=== PATIENT | male | born 1975 | race Caucasian/White ===

== ENCOUNTER 2016-06-20 07:16 | Day surgery (SDC) | payer OTHER, BC ==
--- NOTE | 2016-06-20 09:38 | PCM.PN ---
- General Info Date of Service: 06/20/16 - Review of Systems Systems Review Comment:: 41 y/o male here for Right Inguinal Hernia Repair. The site is confirmed with the patient and marked. I have again reviewed the proposed procedure with the patient. Expectations and instructions reviewed. Questions answered. He agrees to proceed accepting risks. - Patient Data Vitals - most recent: Last Vital Signs Temp 97.9 F 06/20/16 07:55 Pulse 55 L 06/20/16 07:55 Resp 18 06/20/16 07:55 BP 119/78 06/20/16 07:55 Pulse Ox 95 06/20/16 07:55 Weight - most recent: 200 lb Med Orders - Current: Current Medications Lactated Ringer's (Ringers, Lactated) 1,000 mls @ 125 mls/hr IV ASDIRECTED JUVENTINO Last Admin: 06/20/16 08:10 Dose: 125 mls/hr Cefazolin Sodium 2 gm/ Sodium (Chloride) 100 mls @ 200 mls/hr IV ONETIME ONE Stop: 06/20/16 11:29 - Problem List Review Problem List Initiated/Reviewed/Updated: Yes - My Orders Last 24 Hours: My Active Orders 06/19/16 10:17 Resuscitation Status Routine 06/20/16 09:45 Patient Status [ADT] Routine Patient to Empty Bladder [RC] ASDIRECTED Verify Patient Consent Obtain [RC] ASDIRECTED Lactated Ringers [Ringers, Lactated] 1,000 ml IV ASDIRECTED Peripheral IV Insertion Adult [OM.PC] Routine Sequential Compression Device [OM.PC] Routine 06/20/16 11:00 ceFAZolin [Ancef] 2 gm Sodium Chloride 0.9% [Normal Saline] 100 ml IV ONETIME 06/20/16 Breakfast Nothing Per Oral Diet [DIET] - Assessment Assessment:: Right Inguinal Hernia - Plan Plan:: Right Inguinal Hernia Repair
[2016-06-20] MEDS ORDERED: Midazolam 1 MG/ML 2 ML SDV IV ONE (09:45)
[2016-06-20] MEDS ORDERED: Lactated Ringers 1,000 ML IV SCH (09:45)
[2016-06-20] MEDS ORDERED: Dexamethasone 4 MG/ML 5 ML MDV IVPUSH ONE (09:45)
[2016-06-20] MEDS ORDERED: Rocuronium 100 MG/10 ML MDV IV ONE (09:45)
[2016-06-20] MEDS ORDERED: Lactated Ringers 1,000 ML IV ONE (09:45)
[2016-06-20] MEDS ORDERED: Ketorolac 30 MG/ML SDV IVPUSH ONE (09:45)
[2016-06-20] MEDS ORDERED: Ondansetron 4 MG/2 ML SDV IVPUSH ONE (09:45)
[2016-06-20] MEDS ORDERED: Neostigmine Methylsulfate 1 MG/ML 5 ML Syringe IV ONE (09:45)
[2016-06-20] MEDS ORDERED: Glycopyrrolate 0.2 MG/ML 2 ML SDV IV ONE (09:45)
[2016-06-20] MEDS ORDERED: fentaNYL 100 MCG/2 ML SDV IV ONE (09:45)
[2016-06-20] MEDS ORDERED: diphenhydrAMINE 50 MG/ML SDV IV ONE (09:45)
[2016-06-20] MEDS ORDERED: Succinylcholine 200 MG/10 ML MDV IV ONE (09:45)
[2016-06-20] MEDS ORDERED: Propofol 200 MG/20 ML SDV IV ONE (09:45)
[2016-06-20] MEDS ORDERED: ceFAZolin 1 GM Vial ONE (10:15)
[2016-06-20] MEDS ORDERED: ceFAZolin 2 GM in Sodium Chloride 0.9% 100 ML IV ONE (11:00)
--- NOTE | 2016-06-20 11:48 | PCM.OPNOTE ---
- General Post-Op/Procedure Note Date of Surgery/Procedure: 06/20/16 Operative Procedure(s): Repair Right Inguinal Hernia with Mesh Findings: Moderately large Indirect Right Inguinal Hernia with mild weakness of the floor of the inguinal canal Pre Op Diagnosis: Right Inguinal Hernia Post-Op Diagnosis: Same Anesthesia Technique: General ET tube Primary Surgeon: Misbah Chang Pathology: Indirect Right Inguinal Hernia Sac Output, Urine Amount: 0 EBL in mLs: 20 Complications: None Condition: Good
[2016-06-20] MEDS: Morphine 2 MG/ML Syringe IVPUSH PRN ×2 (12:06→12:19)
[2016-06-20] MEDS ORDERED: Acetaminophen/HYDROcodone 325-5 MG Tab PO ONE (12:41)
--- NOTE | 2016-06-20 13:05 | OR ---
DATE OF OPERATION: 06/20/2016 SURGEON: Misbah Chang MD PREOPERATIVE DIAGNOSIS: Right inguinal hernia. POSTOPERATIVE DIAGNOSIS: Indirect right inguinal hernia. OPERATION PERFORMED: Right inguinal hernia repair with mesh. INDICATIONS FOR SURGERY: This 41-year-old male has developed a bulge in the right groin. Physical findings are consistent with a right inguinal hernia, and he comes for elective repair. FINDINGS: The patient has a moderate sized indirect inguinal hernia on the right side. The hernia sac is scarred to the cord structures, but upon opening it, was found to be empty. The floor of the inguinal canal demonstrates mild generalized weakness. Cord structures otherwise appeared satisfactory. PROCEDURE IN DETAIL: The patient was taken to the operating room. He was given general endotracheal anesthesia, and the right groin was sterilely prepped and draped. A linear right groin incision was made, carried down to the external oblique fascia, which was incised opening the external ring. The spermatic cord was isolated. The ilioinguinal nerve was identified and carefully preserved. The spermatic cord was explored and an indirect sac was identified and carefully from the cord structures using blunt and cautery dissection. The sac was freed down to the level of the internal ring and it is opened and found to be empty. It was then rotated upon its access and suture-ligated with 2-0 Vicryl at the level of the internal ring. A reinforcing tie of 2-0 Vicryl was placed at this location. The sac was then amputated above these ties. Repair of the floor of the inguinal canal was then carried out by securing a large sized keyhole shaped piece of polypropylene mesh and positioned over the Hesselbach's triangle. The inferior edge of the mesh was secured to the Larry's ligament medial to the femoral vessels, and the shelving portion of the inguinal ligament anterior to these vessels with interrupted 0 Prolene sutures. The superior edge of the mesh was secured to the internal oblique fascia near its fusion with the external oblique fascia also with interrupted 0 Prolene. The spermatic cord and the ilioinguinal nerve were passed in through the keyhole defect. Then, the tails of the mesh were secured laterally with 0 Prolene recreating the internal ring such that it would admit one fingertip alongside the spermatic cord. The tails of the mesh were trimmed and then laid into the space lateral to the internal ring between the internal and external oblique fascias. Inspection showed no sign of any complicating process. The wound was irrigated with Ancef and saline solution. The external oblique fascia was reapproximated with a running 2-0 Vicryl recreating the external ring. The wound was infiltrated with Marcaine. Cheyanne's fascia was approximated with interrupted 4-0 Vicryl, and the skin was closed with a running 4-0 Vicryl subcuticular stitch, Steri-Strips, and Benzoin. Antibiotic ointment and sterile dressing were placed. The patient was then awakened, extubated, and taken from the operating room in satisfactory condition. ESTIMATED BLOOD LOSS: 20 mL. COMPLICATIONS: None. PROGNOSIS: Good. /[id number] XANDER/USMAN
[2016-06-20 14:46] VITALS: BP 122/76
== END 2016-06-20 14:35 | disposition home or self-care (01) ==
LOC: FB.SDS 07:16
PROVIDERS: ATTEND Surgery
DX: K40.90 Unilateral inguinal hernia, without obstruction or gangrene, not specified as recurrent (principal); Z79.899 Other long term (current) drug therapy; Z88.6 Allergy status to analgesic agent
CPT/HCPCS: 49505; A9270; J0330; J0690; J1100; J1200; J1885; J2250; J2270; J2405; J2704; J3010; J7030; J7120; 88300; C1781; J3490

== ENCOUNTER 2017-12-19 16:10 | Day surgery (SDC) | payer BC ==
[2017-12-19] MEDS ORDERED: Sodium Chloride 0.9% 10 ML Syringe FLUSH PRN (16:18)
[2017-12-19] MEDS ORDERED: Propofol 200 MG/20 ML SDV IV ONE (17:07)
[2017-12-19] MEDS ORDERED: Lactated Ringers 1,000 ML IV ONE (17:07)
[2017-12-19] MEDS ORDERED: Ketamine 500 mg/10 ML MDV IV ONE (17:07)
[2017-12-19] MEDS ORDERED: Lidocaine 2% 100 MG/5 ML Syringe IVPUSH ONE (17:07)
[2017-12-19] MEDS ORDERED: Midazolam 1 MG/ML 2 ML SDV IV ONE (17:07)
[2017-12-19] MEDS ORDERED: cefOXitin 1 GM Vial IV ONE (17:07)
[2017-12-19] MEDS ORDERED: fentaNYL 100 MCG/2 ML SDV IV ONE (17:07)
[2017-12-19] MEDS: Lactated Ringers 1,000 ML IV SCH (17:11)
--- NOTE | 2017-12-19 17:11 | PCM.PN ---
- General Info Date of Service: 12/19/17 Admission Dx/Problem (Free Text): Patient with severe rectal pain for 4 days. Exam shows findings consistent with aguilar-rectal abscess. - Patient Data Vitals - Most Recent: Last Vital Signs Temp 98.1 F 12/19/17 16:17 Pulse 83 12/19/17 16:17 Resp 20 12/19/17 16:17 BP 128/72 12/19/17 16:17 Pulse Ox 95 12/19/17 16:17 Weight - Most Recent: 195 lb 8 oz Med Orders - Current: Current Medications Lactated Ringer's (Ringers, Lactated) 1,000 mls @ 125 mls/hr IV ASDIRECTED JUVENTINO Sodium Chloride (Saline Flush) 10 ml FLUSH ASDIRECTED PRN PRN Reason: Keep Vein Open - Exam General: Alert, Oriented Lungs: Clear to Auscultation Cardiovascular: Regular Rate, Regular Rhythm Extremities: Normal Inspection, No Pedal Edema Physical Findings Comments:: Induration and marked tenderness on left posterior aspect of rectum. - Problem List Review Problem List Initiated/Reviewed/Updated: Yes - My Orders Last 24 Hours: My Active Orders 12/19/17 16:18 Patient Status [ADT] Routine Patient to Empty Bladder [RC] ASDIRECTED Verify Patient Consent Obtain [RC] ASDIRECTED Sodium Chloride 0.9% [Saline Flush] 10 ml FLUSH ASDIRECTED PRN Peripheral IV Insertion Adult [OM.PC] Routine Resuscitation Status Routine 12/19/17 16:30 Lactated Ringers [Ringers, Lactated] 1,000 ml IV ASDIRECTED - Assessment Assessment:: Aguilar-rectal abscess - Plan Plan:: I and D of Aguilar-rectal abscess
[2017-12-19] MEDS: Bupivacaine 0.5%/EPINEPHrine 1:200,000 50 ML MDV INJECT ONE (17:21)
--- NOTE | 2017-12-19 17:42 | PCM.OPNOTE ---
- General Post-Op/Procedure Note Date of Surgery/Procedure: 12/19/17 Operative Procedure(s): Incision and Drainage of [place]-Rectal Abscess Findings: Large deep abscess to left and posterior of rectum Pre Op Diagnosis: [place]-rectal abscess Post-Op Diagnosis: Same Anesthesia Technique: Local, MAC Primary Surgeon: Misbah Chang Pathology: Cultures of abscess fluid Output, Urine Amount: 0 EBL in mLs: 10 Surgical Drain/Tube Type: [place] Complications: None Condition: Good
[2017-12-19 19:05] VITALS: BP 128/85
--- NOTE | 2017-12-19 22:28 | OR ---
DATE OF OPERATION: 12/19/2017 SURGEON: Misbah Chang MD REFERRING PHYSICIAN: Dr. Pearce. PREOPERATIVE DIAGNOSIS: Perirectal abscess. POSTOPERATIVE DIAGNOSIS: Perirectal abscess. OPERATION PERFORMED: Incision and drainage of perirectal abscess. INDICATIONS FOR SURGERY: This 42-year-old male is seen in the outpatient clinic with a 4-day history of severe perirectal pain. Findings of marked tenderness and induration near the rectum consistent with a perirectal abscess and he comes for incision and drainage. FINDINGS: Posterior to the rectal opening just to the left of the midline, there is an area of induration and slight hyperemia of the overlying skin. In this area, a deep abscess pocket was identified with a large amount of pus. PROCEDURE IN DETAIL: The patient was taken to the operating room. He was placed in the left lateral decubitus position and given deep intravenous sedation. The perirectal area was sterilely prepped with Betadine, draped and anesthetized with Marcaine with epinephrine. Aspiration with an 18-gauge needle in the area of maximal induration identified an abscess pocket and then a circular incision was made removing the core of tissue overlying the abscess pockets. Dissection proceeded down until a pocket was entered and the large amount of pus was drained. Cultures of the pus were taken and then digital exploration of the abscess pocket was performed to assure that all portions of the abscess were drained and all loculations were broken up. The abscess cavity was then copiously irrigated and a [place] drain was left in place, secured to the skin with 2-0 Vicryl suture. A sterile dressing was placed. The patient was then awakened and taken from the operating room in satisfactory condition. ESTIMATED BLOOD LOSS: 10 mL. COMPLICATIONS: None. PROGNOSIS: Good. /[id number] XANDER/USMAN
== END 2017-12-19 19:18 | disposition home or self-care (01) ==
LOC: FB.MS 16:10 → FB.SDS 16:10
PROVIDERS: ATTEND Surgery
DX: K61.1 Rectal abscess (principal)
CPT/HCPCS: 46040; J3490; J7120; J0694; J2001; J2250; J2704; J3010